=== PATIENT | female | born 1970 | race Caucasian/White ===

== ENCOUNTER 2016-08-31 14:20 | Emergency (ER) | payer MEDICAID ==
[~2016-08-31] VITALS: Ht 170.2 cm; Wt 62.0 kg
[2016-08-31 14:22] VITALS: BP 131/98; PULSE 15; PULSE 89; RESP 16; TEMP 97.7; O2SAT 96
[2016-08-31] MEDS ORDERED: [UNRECOGNIZED DRUG - OTHER] (14:42)
[2016-08-31] MEDS ORDERED: CLON1 PO (14:46)
[2016-08-31] MEDS ORDERED: SODIUM CHLOR 0.9% 1000 ML INJ 1,000 ML IV SCH (15:24)
--- NOTE | 2016-08-31 15:26 | PD ---
HPI Chief Complaint: GI Complaint Time Seen by Provider: 15:26 Travel History International Travel<30 days: No Contact w/Intl Traveler<30days: No Traveled to known affect area: No History of Present Illness HPI 46-year-old female presents to the emergency department for evaluation of abdominal pain, diarrhea and body aches. Patient states that for the past 2 days she has felt tired and generally unwell. States that last night she woke up with periumbilical abdominal pain described as sharp and crampy. States that it comes in waves and after she has a bowel movement the pain resolves for a short time. States that she's had frequent loose watery stools since this morning as well. States that throughout the day today she has also developed body aches and joint pain. She complains of nausea without vomiting. Denies fever, chills, bloody stool, dysuria, hematuria, cough or cold symptoms. Denies any prior abdominal surgeries. The patient is here on vacation from [place], she's been here for the past week. No other complaints. PFSH Past Medical History Anxiety: Yes Depression: Yes Tetanus Vaccination: < 5 Years Influenza Vaccination: No ?: Not LMP: 08/2016 (every 5 months)-pre menopausal Social History Alcohol Use: Yes Tobacco Use: Yes Substance Use: No Allergies-Medications (Allergen,Severity, Reaction): Coded Allergies: No Known Allergies (Unverified , 08/31/16) Reported Meds & Prescriptions Reported Meds & Active Scripts Active Reported Klonopin (Clonazepam) 1 Mg Tab 1 Mg PO TID [serovital otc] Review of Systems Except as stated in HPI: all other systems reviewed are Neg Physical Exam Narrative GENERAL: Well-nourished and well-developed pleasant patient in no acute distress who is nontoxic appearing. SKIN: Warm and dry. HEAD: Normocephalic and atraumatic. EYES: No injection, drainage, or hyphema noted. PERRLA. EOMI. ENT: No nasal drainage noted. Oropharynx is clear. NECK: Supple and the trachea is midline. CARDIOVASCULAR: Regular rate and rhythm. RESPIRATORY: Breath sounds are equal bilaterally with no accessory muscle use, wheezing, rhonchi, or crackles. GASTROINTESTINAL: Periumbilical tenderness to palpation. No rebound tenderness or guarding. Abdomen is soft and nondistended. MUSCULOSKELETAL: No obvious deformities, swelling, cyanosis, or ecchymosis is present throughout the upper and lower extremities. Patient has full range of motion without any signs of neurovascular compromise. BACK: Negative CVA tenderness. NEUROLOGICAL: Awake, alert, and oriented. Normal speech and gait. Cranial nerves are grossly intact. Data Data Last Documented VS Vital Signs Date Time Temp Pulse Resp B/P Pulse Ox O2 Delivery O2 Flow Rate FiO2 08/31/16 17:46 76 20 137/72 99 Room Air 08/31/16 14:22 97.7 Orders Complete Blood Count With Diff (08/31/16 15:24) Comprehensive Metabolic Panel (08/31/16 15:24) Lipase (08/31/16 15:24) Urinalysis - C+S If Indicated (08/31/16 15:24) Ct Abd/Pel W Iv Contrast(Rout) (08/31/16 15:24) Iv Access Insert/Monitor (08/31/16 15:24) Ecg Monitoring (08/31/16 15:24) Oximetry (08/31/16 15:24) Morphine Inj (Morphine Inj) (08/31/16 15:30) Ondansetron Inj (Zofran Inj) (08/31/16 15:30) Sodium Chlor 0.9% 1000 Ml Inj (Ns 1000 M (08/31/16 15:24) Sodium Chloride 0.9% Flush (Ns Flush) (08/31/16 15:30) Ed Urine Pregnancytest Poc (08/31/16 15:24) Influenzae A/B Antigen (08/31/16 15:34) Iohexol 350 Inj (Omnipaque 350 Inj) (08/31/16 17:37) Labs Laboratory Tests Test 08/31/16 08/31/16 16:03 16:18 White Blood Count 5.6 TH/MM3 Red Blood Count 4.10 MIL/MM3 Hemoglobin 14.3 GM/DL Hematocrit 41.7 % Mean Corpuscular Volume 101.6 FL Mean Corpuscular Hemoglobin 34.9 PG Mean Corpuscular Hemoglobin 34.4 % Concent Red Cell Distribution Width 13.0 % Platelet Count 230 TH/MM3 Mean Platelet Volume 8.8 FL Neutrophils (%) (Auto) 60.3 % Lymphocytes (%) (Auto) 30.6 % Monocytes (%) (Auto) 8.5 % Eosinophils (%) (Auto) 0.4 % Basophils (%) (Auto) 0.2 % Neutrophils # (Auto) 3.4 TH/MM3 Lymphocytes # (Auto) 1.7 TH/MM3 Monocytes # (Auto) 0.5 TH/MM3 Eosinophils # (Auto) 0.0 TH/MM3 Basophils # (Auto) 0.0 TH/MM3 CBC Comment DIFF FINAL Differential Comment Sodium Level 138 MEQ/L Potassium Level 3.6 MEQ/L Chloride Level 105 MEQ/L Carbon Dioxide Level 24.8 MEQ/L Anion Gap 8 MEQ/L Blood Urea Nitrogen 10 MG/DL Creatinine 0.70 MG/DL Estimat Glomerular Filtration 90 ML/MIN Rate Random Glucose 84 MG/DL Calcium Level 9.4 MG/DL Total Bilirubin 0.4 MG/DL Aspartate Amino Transf 23 U/L (AST/SGOT) Alanine Aminotransferase 26 U/L (ALT/SGPT) Alkaline Phosphatase 63 U/L Total Protein 7.0 GM/DL Albumin 3.8 GM/DL Lipase 98 U/L Urine Color YELLOW Urine Turbidity HAZY Urine pH 5.5 Urine Specific [place] 1.029 Urine Protein TRACE mg/dL Urine Glucose (UA) NEG mg/dL Urine Ketones 10 mg/dL Urine Occult Blood TRACE Urine Nitrite NEG Urine Bilirubin NEG Urine Urobilinogen LESS THAN 2.0 MG/DL Urine Leukocyte Esterase TRACE Urine RBC 1 /hpf Urine WBC 2 /hpf Urine Squamous Epithelial 13 /hpf Cells Urine Mucus FEW /lpf Microscopic Urinalysis Comment CULT NOT INDICATED MDM Medical Decision Making Medical Screen Exam Complete: Yes Emergency Medical Condition: Yes Differential Diagnosis Gastroenteritis versus colitis versus diverticulitis versus viral illness Narrative Course 46-year-old female presents to the emergency department for evaluation of abdominal pain, diarrhea, nausea and body aches. Patient is afebrile, vital signs are stable. She does have abdominal tenderness to palpation in the periumbilical region. IV access is obtained, labs been drawn and sent. Patient is placed on cardiac telemetry and pulse oximetry monitoring. Patient is administered IV fluids, Zofran and morphine. CBC is unremarkable. CMP is unremarkable. Urinalysis shows 10 ketones, trace occult blood, trace leukocyte esterase, few mucus. Patient has remained stable while here in the emergency department. States the morphine improved her pain some but her body aches are returning. We'll give the patient toradol 30 mg IV. This is a viral gastroenteritis. Discussed supportive care and advised to follow-up with her PCP as needed. Discussed return precautions. Patient verbalizes understanding and agreement with treatment plan. I discussed the case with my attending physician Dr. Freeman who is aware of the patients history, physical examination findings, and treatment plan. Diagnosis Primary Impression: Gastroenteritis Additional Impression: Viral illness Referrals: Primary Care Physician Patient Instructions: Gastroenteritis (ED), General Instructions, Viral Syndrome (ED) Additional Instructions: Rest. Drink plenty of fluids. Eat bland foods such as bananas, rice, applesauce, toast. Alternate tylenol and ibuprofen as directed on the box as needed for pain. Follow-up with your Primary Care Physician. Return to the ED for any acute worsening of symptoms. Med/Other Pt SpecificInfo: No Change to Meds Disposition: 01 DISCHARGE HOME Condition: Stable Edita De Oliveira Aug 31, 2016 15:26
[2016-08-31] MEDS ORDERED: ONDANSETRON HCL 4 MG/2 ML VIAL IVP ONE (15:30)
[2016-08-31] MEDS ORDERED: MORPHINE SULFATE 4 MG/ML INJ IV PUSH ONE (15:30)
[2016-08-31] MEDS ORDERED: SODIUM CHLORIDE 0.9% FLUSH 10 ML FLUSH IV FLUSH PRN (15:30)
[2016-08-31 16:27] LABS: AUTOMATED NEUTROPHIL # 3.4 TH/MM3 (1.8-7.7); BASOPHIL % 0.2 % (0.0-2.0); EOSINOPHIL % 0.4 % (0.0-4.0); HEMATOCRIT 41.7 % (35.0-46.0); HEMO FLAGS DIFF FINAL; LYMPH % 30.6 % (9.0-44.0); LYMPHOCYTE # 1.7 TH/MM3 (1.0-4.8); MEAN CELL VOLUME 101.6 FL (80.0-100.0); MEAN CORPUSCULAR HEMOGLOBIN 34.9 PG (27.0-34.0); MEAN CORPUSCULAR HGB CONC 34.4 % (32.0-36.0); MONO % 8.5 % (0.0-8.0); NEUT % 60.3 % (16.0-70.0); PLATELET COUNT 230 TH/MM3 (150-450); WHITE BLOOD COUNT 5.6 TH/MM3 (4.0-11.0)
[2016-08-31 16:46] LABS: BLOOD, URINE TRACE (NEG); COMMENT (UR) CULT NOT INDICATED; CULTURE IF INDICATED CULT NOT INDICATED; GLUCOSE,URINE NEG (NEG); KETONE, URINE 10 mg/dL (NEG); MUCUS URINE FEW /lpf (OCC); NITRITE,URINE NEG (NEG); PH, URINE 5.5 (5.0-8.5); SQUAMOUS EPITHELIAL CELL URINE 13 /hpf (0-5); URINE COLOR YELLOW (YELLW/STRAW)
[2016-08-31 16:49] LABS: ALKALINE PHOSPHATASE 63 U/L (45-117); ALT (GPT) 26 U/L (10-53); ANION GAP 8 MEQ/L (5-15); AST (GOT) 23 U/L (15-37); BICARBONATE 24.8 MEQ/L (21.0-32.0); BLOOD UREA NITROGEN 10 MG/DL (7-18); CHLORIDE 105 MEQ/L (98-107); GLOMERULAR FILTRATION RATE 90 ML/MIN (>89); POTASSIUM 3.6 MEQ/L (3.5-5.1); SODIUM (NA) 138 MEQ/L (136-145); TOTAL BILIRUBIN ADULT 0.4 MG/DL (0.2-1.0)
[2016-08-31] MEDS ORDERED: IOHEXOL 350 MG/ML 10 ML VIAL (for RAD DIAG) IV ONE (17:37)
[2016-08-31 17:46] VITALS: BP 137/72; PULSE 76; RESP 20; O2SAT 99
--- NOTE | 2016-08-31 18:02 | RADRPT ---
EXAM DATE/TIME: 08/31/2016 17:29 [facility] COMPARISON: No previous studies available for comparison. INDICATIONS : Abdominal pain, nausea, and vomiting. IV CONTRAST: 85 cc Omnipaque 350 (iohexol) IV ORAL CONTRAST: No oral contrast ingested. RADIATION DOSE: 6.09 CTDIvol (mGy) MEDICAL HISTORY : None SURGICAL HISTORY : breast surgery ENCOUNTER: Initial ACUITY: 1 day PAIN SCALE: 6/10 LOCATION: abdomen TECHNIQUE: Volumetric scanning of the abdomen and pelvis was performed. Using automated exposure control and ad justment of the mA and/or kV according to patient size, radiation dose was kept as low as reasonably achievable to obtain optimal diagnostic quality images. FINDINGS: CT Abdomen: The liver, spleen, pancreas, kidneys, adrenals are unremarkable. There is no evidence for any appreciable pathological adenopathy, free fluid, or bowel obstruction. Common bile duct is dila patrick measuring almost 1.3 cm in size and the gallbladder is contracted. The etiology is not evident. T here is an approximate 2.5 cm lipoma in the right rectus abdominis muscle. CT pelvis: There is a septated cyst in the right ovary measuring almost 4 cm in size with an approxim ate 1.7 cm cyst in the left ovary with slight nonspecific fluid within the endometrial canal. CONCLUSION: Slightly complex cyst in the right ovary and small cyst in the left ovary, pelvic ult rasound is suggested in 6 months as a conservative follow up. Douglas Meier MD on August 31, 2016 at 17:56 Board Certified Radiologist. This report was verified electronically.
[2016-08-31] MEDS ORDERED: KETOROLAC TROMETHAMINE 30 MG/ML (IVP) VIAL IV PUSH ONE (18:15)
[2016-08-31] MEDS ORDERED: BENT20TA PO (18:34)
== END 2016-08-31 18:53 | disposition home or self-care (01) ==
LOC: NEPD 14:20
DX: K52.9 Noninfective gastroenteritis and colitis, unspecified (principal); B34.9 Viral infection, unspecified; R19.7 Diarrhea, unspecified; R11.0 Nausea; Z72.0 Tobacco use
CPT/HCPCS: 74177; 80053; 81001; 83690; 84703; 85025; 87804; 96361; 96374; 96375; 99284; J1885; J2270; J2405; J7030; Q9967